=== PATIENT | female | born 1965 | race Caucasian/White ===

== ENCOUNTER 2018-11-30 16:07 | Emergency (ER) | payer OTHER, SELFPAY ==
--- NOTE | 2018-11-30 16:11 | DI.CT.S_ITS ---
PROCEDURE: CT HEAD/BRAIN WO CON INDICATIONS: head trauma/Friday/? LOC, vomited x 1 TECHNIQUE: Noncontrast 4.5 mm thick angled axial sections acquired from the foramen magnum to the vertex, with coronal and sagittal reformats. For radiation dose reduction, the following was used: automated exposure control, adjustment of mA and/or kV according to patient size. COMPARISON: None. FINDINGS: Image quality: Excellent. CSF spaces: Basal cisterns are patent. No extra-axial fluid collections. Ventricles are normal in size and shape. Brain: No midline shift. No intracranial masses or hemorrhage. Hinson-white matter interface is normal. Skull and face: Calvarium and visualized facial bones are intact, without suspicious lesions. Near complete opacification of the ethmoid air cells, and bilateral maxillary sinus disease. There is also bilateral sphenoid sinus disease. Mastoids clear. IMPRESSION: No acute intracranial process. Severe pansinus disease as above. Dictated by: Miguel Browne M.D. on 11/30/2018 at 16:39 Approved by: Miguel Browne M.D. on 11/30/2018 at 16:42
[2018-11-30 16:17] VITALS: BP 111/68; PULSE 59; RESP 12; TEMP 36.8; O2SAT 100
--- NOTE | 2018-11-30 16:57 | ED.FALL ---
HPI - Fall General Chief Complaint: Fall Stated Complaint: PASSED OUT SAT HIT HEAD BUMP BACK LEFT SIDE Time Seen by Provider: 11/30/18 16:36 Source: patient Mode of arrival: ambulatory Limitations: no limitations History of Present Illness HPI Narrative: Patient is a 53-year-old female sent in from the [facility] with closed head injury. She actually fell 2 nights ago. She took Benadryl she has been having some sinusitis issues. She took Benadryl and fell and hit the floor. She does not know she loss consciousness she did throw up 1 time immediately after that but none since. The back of her head seems to be bothering her hurts whenever she walks. She has absolutely no vertebral pain. She does have some mild neck tenderness on the left lateral side but no numbness tingling or weakness in her extremities. She started antibiotics today for sinus infection. But overall concerned with the pain in the back of her head. Onset (ago): day(s) (2) Fall from: standing Place fall occurred: home Loss of consciousness: unsure Prolonged down time: no Related Data Home Medications Medication Instructions Recorded Confirmed [IBUPROFEN] PRN #0 09/18/10 aspirin 81 mg PO QDAY #0 06/18/12 ezetimibe [Zetia] 10 mg PO DAILY #0 04/04/16 11/30/18 lovastatin 10 mg 3 TIMES WKLY #0 04/04/16 albuterol sulfate 2 puff INHALATION Q4H PRN 11/30/18 11/30/18 amoxicillin-pot clavulanate 1 tab PO [id number] 11/30/18 11/30/18 montelukast [Singulair] 10 mg PO DAILY 11/30/18 11/30/18 Previous Rx's Medication Instructions Recorded valacyclovir 500 mg PO QDAY #30 tab 05/23/16 Allergies Allergy/AdvReac Type Severity Reaction Status Date / Time animal dander [ANIMAL DANDER] Allergy Intermediate SNEEZING, Verified 11/30/18 16:20 WATERY EYES DUST Allergy Intermediate SNEEZING, Uncoded 07/23/17 12:11 WATERY EYES DESTINY HAY Allergy Intermediate SNEEZING, Uncoded 07/23/17 12:11 WATERY EYES Review of Systems Review of Systems GENERAL: Denies chills, fatigue, malaise, fever, sweats, travel HEENT: Sinus pain RESPIRATORY: Denies dyspnea, cough, wheezing, hemoptysis, sputum. CARDIOVASCULAR: Denies chest pain, palpitations, orthopnea, edema GASTROINTESTINAL: Denies nausea, vomiting, abdominal pain, diarrhea, constipation, melena. : Denies dysuria, frequency, incontinence, hematuria, urinary retention, flank pain. MUSCULOSKELETAL: Denies weakness, joint pain, or bony pain SKIN: No rash, no erythema, no pruritus NEUROLOGIC: Closed head injury see HPI PSYCHIATRIC: No concerning psychosocial issues. 12 point review of systems is negative except for those stated above and HPI Exam Initial Vital Signs Initial Vital Signs: Vital Signs Temperature 98.2 F 11/30/18 16:17 Pulse Rate 59 L 11/30/18 16:17 Respiratory Rate 12 11/30/18 16:17 Blood Pressure 111/68 11/30/18 16:17 Pulse Oximetry 100 11/30/18 16:17 GENERAL: Well-appearing, well-nourished and in no acute distress. HEENT: Head atraumatic no contusions or abrasions or swelling no crepitations. Nasal congestion noted NECK: No vertebral tenderness no step-offs full flexion extension and rotation. At tender to touch on the left lateral sternocleidomastoid CARDIOVASCULAR: Regular rate and rhythm without murmurs, rubs or gallops. RESPIRATORY: Breath sounds equal bilaterally, no wheezes rales or rhonchi. ABDOMEN: Soft, nontender. Normoactive bowel sounds all 4 quadrants. No guarding or rebound. EXTREMITIES: Normal range of motion, no clubbing or edema. Neurovascularly intact NEUROLOGICAL: Alert and oriented x4.Normal gait and speech. Cranial nerves II through XII grossly intact. Restaurant Manager strength equal bilaterally ambulatory in the ED without any difficulty clear splint SKIN: Warm, dry, no laceration, no petechiae, no rashes or lesions. [facility] Medical History Coronary artery disease (Acute) Social History Smoking Status: Never smoker Social History Smoking Status: Never smoker Course Orders Ordered: ED Orders 11/30/18 16:11 CT head/brain wo con Stat Discontinued Medications Ondansetron HCl (Zofran Odt) 4 mg PO NOW ONE Stop: 11/30/18 16:13 Last Admin: 11/30/18 16:46 Dose: Not Given Vital Signs - 8 hr 11/30/18 16:17 11/30/18 17:00 Temperature 98.2 F Pulse Rate 59 L 68 Respiratory Rate 12 18 Blood Pressure 111/68 113/68 Pulse Oximetry 100 100 MDM - Fall Imaging Data CT scan - head: Radiologist's impression: PROCEDURE: CT HEAD/BRAIN WO CON INDICATIONS: head trauma/Friday/? LOC, vomited x 1 TECHNIQUE: Noncontrast 4.5 mm thick angled axial sections acquired from the foramen magnum to the vertex, with coronal and sagittal reformats. For radiation dose reduction, the following was used: automated exposure control, adjustment of mA and/or kV according to patient size. COMPARISON: None. FINDINGS: Image quality: Excellent. CSF spaces: Basal cisterns are patent. No extra-axial fluid collections. Ventricles are normal in size and shape. Brain: No midline shift. No intracranial masses or hemorrhage. Hinson-white matter interface is normal. Skull and face: Calvarium and visualized facial bones are intact, without suspicious lesions. Near complete opacification of the ethmoid air cells, and bilateral maxillary sinus disease. There is also bilateral sphenoid sinus disease. Mastoids clear. IMPRESSION: No acute intracranial process. Severe pansinus disease as above. Dictated by: Miguel Browne M.D. on 11/30/2018 at 16:39 MDM Narrative Medical decision making narrative: Patient has no cervical bony tenderness at this time I do not think imaging neck is indicated. Head CT was negative. She does sound quite congested and having pain over her sinuses. She was started on antibiotics for sinusitis sinusitis also noted on CT. At this time she is not septic. Recommend continuing her antibiotics as prescribed today and following up with PCP. Discharge Plan Departure Patient Disposition: Home Clinical Impression: Closed head injury Qualifiers: Encounter type: initial encounter Qualified Code(s): S09.90XA - Unspecified injury of head, initial encounter Sinusitis Qualifiers: Sinusitis location: pansinusitis Chronicity: acute Recurrence: non-recurrent Qualified Code(s): J01.40 - Acute pansinusitis, unspecified Discharge Date/Time: 11/30/18 17:09 Interventions: ED Discharge Assessment Last Done: 11/30/18 17:00 Instructions: DI for Closed Head Injury Activity Restrictions/Additional Instructions: *You have been diagnosed with closed head injury sinusitis *What to do: At this time head CT is negative. Recommend increasing movement as tolerated heating pad on neck if needed. *Continue to take medications as directed Motrin 800 mg every 8 hours if needed for pain Tylenol 1000 mg every 6 hours if needed for pain *Follow up with your primary care provider in 2-3 days *Return to ER if you should have persistent vomiting weakness numbness tingling or any new, worsening or concerning symptoms Prescriptions: No Action [IBUPROFEN] PRN Qty: 0 RF: 0 aspirin 81 MG tablet,delayed release (DR/EC) 81 mg PO QDAY Qty: 0 RF: 0 lovastatin 10 MG tablet 10 mg 3 TIMES WKLY Qty: 0 RF: 0 ezetimibe [Zetia] 10 MG tablet 10 mg PO DAILY Qty: 0 RF: 0 valacyclovir 500 MG tablet 500 mg PO QDAY Qty: 30 RF: 3 albuterol sulfate 90 mcg/actuation HFA aerosol inhaler 2 puff inhalation Q4H PRN (Reason: Shortness Of Breath) RF: 0 amoxicillin-pot clavulanate 875-125 mg tablet 1 tab PO [id number] RF: 0 montelukast [Singulair] 10 MG tablet 10 mg PO DAILY RF: 0 Referrals: Andrews Gillis MD [Primary Care Provider] -
[2018-11-30 17:00] VITALS: BP 113/68; PULSE 68; RESP 18; O2SAT 100
== END 2018-11-30 17:09 | disposition home or self-care (01) ==
PROVIDERS: Emergency Provider Emergency Medicine; Family Provider Family Medicine; PCP Family Medicine
DX: S09.90XA Unspecified injury of head, initial encounter (principal); J01.40 Acute pansinusitis, unspecified; W19.XXXA Unspecified fall, initial encounter
CPT/HCPCS: 70450; 99282; 99284